=== PATIENT | male | born 2000 | race Caucasian/White ===

== ENCOUNTER 2024-02-04 14:38 | Outpatient (CLI) | payer OTHER ==
--- NOTE | 2024-02-04 15:40 | MRI Report ---
Ankle LT WO CLINICAL HISTORY: 23 years of age, Male, R ANKLE INJURY. COMPARISON: None Technique: Multisequence, multiplanar MRI of the right ankle was performed without contrast. IV CONTRAST: Not given FINDINGS: Tendons: Mild tenosynovitis of the posterior tibialis and the flexor digitorum longus. The flexor marita luces longus is unremarkable. Extensor tendons are unremarkable. Mild tenosynovitis of the peroneal l ongus at the level of the anterior calcaneus. No tear of the peroneal tendon. Mild tendinosis of the distal Achilles tendon, without tear. Ligaments: The anterior and posterior tibiofibular ligaments are intact. Marked thickening of the ant erior talofibular ligament, which appears indistinct, likely representing partial thickness tear. The posterior talofibular ligament is intact.The calcaneofibular ligament is thickened, representing gloria or sprain. The deep portion deltoid ligament is intact. Sinus Tarsi: Normal signal without evidence of inflammatory change or fibrosis. Plantar fascia: Normal signal and morphology without evidence of inflammation or tear. Muscles: Visualized intrinsic foot musculature demonstrates normal signal and bulk. Bones and cartilage: Os trigonum. There is mild marrow edema of the posterior talus dome, about the o s trigonum, which may be degenerative. No acute fracture. Miscellaneous: Tarsal tunnel appears normal. No significant effusion. No ganglion cyst. IMPRESSION: 1.Mild tenosynovitis of the flexor tendons and the peroneal longus. 2.Partial thickness tear of the anterior talofibular ligament. Additional sprain of the lateral ankle ligaments. 3.Os trigonum with subjacent mild marrow edema of the posterior talus dome, which may be degenerative . Reviewed by: Radha Obando MD on 02/04/2024 3:39 PM PDT Approved by: Radha Obando MD on 02/04/2024 3:39 PM PDT Station ID: [id number]
== END 2024-02-04 14:39 | disposition home or self-care (01) ==
LOC: DI 14:38
PROVIDERS: ATTEND Student in an Organized Health Care Education/Training Program
DX: S93.492A Sprain of other ligament of left ankle, initial encounter (principal); M65.9 Synovitis and tenosynovitis, unspecified